=== PATIENT | female | born 1985 | race Caucasian/White ===

== ENCOUNTER 2019-02-25 10:59 | Emergency (ER) | payer OTHER ==
[~2019-02-25] VITALS: Ht 170.2 cm; Wt 99.8 kg
[2019-02-25] MEDS ORDERED: ZITHROMAX1 GM PO (11:09)
[2019-02-25] MEDS ORDERED: ALBUTEROL2.5 MG/0.1 INH (11:11)
[2019-02-25] MEDS ORDERED: VENTOLIN HFA 1818 GM INH (12:52)
[2019-02-25] MEDS ORDERED: TESSALON PERLE100 MG PO (12:52)
[2019-02-25 13:02] VITALS: BP 136/78
== END 2019-02-25 13:03 | disposition home or self-care (01) ==
LOC: M.ERS 10:59
DX: J40 Bronchitis, not specified as acute or chronic (principal); F17.210 Nicotine dependence, cigarettes, uncomplicated; Z98.890 Other specified postprocedural states